=== PATIENT | female | born 1995 | race Caucasian/White ===

== ENCOUNTER → 2019-03-16 09:04 | Outpatient (CLI) | payer OTHER, SELFPAY ==
[2019-03-16 10:08] LABS: HCG,Quantitative 0 mIU/mL
[2019-03-16 11:47] LABS: Hemoglobin A1C 5.1 % (0.0-7.0)
== END ==
PROVIDERS: Visit Provider Obstetrics & Gynecology
DX: N92.6 Irregular menstruation, unspecified (principal)
CPT/HCPCS: 36415; 83036; 84702

== ENCOUNTER 2021-03-04 10:56 | Emergency (ER) | payer OTHER, SELFPAY ==
[2021-03-04 12:30] VITALS: BP 129/69; PULSE 111; RESP 18; TEMP 37.3; O2SAT 98; BMI 34.2
--- NOTE | 2021-03-04 13:08 | HMH.EDUTC ---
[facility] [place] Clinical Impression: URI (upper respiratory infection) Qualifiers: URI type: unspecified URI Qualified Code(s): J06.9 - Acute upper respiratory infection, unspecified Disposition: Home, Self-Care Condition on Discharge: Good Instructions: DI for Cough -- Adult, DI for COVID-19 (Suspected or Confirmed ), Preventing the Spread of Coronavirus Discharge Instructions Additional Instructions: * No sign of bacterial infection. Likely viral. Virus can take 7-14 days to run their course *Nasal saline and bulb syringe or nose michelle to remove nasal drainage and help with nasal congestion. Hard to eat, drink, or sleep with nasal congestion so important to keep nose cleaned out. *Monitor Temp, Over the counter Motrin or Tylenol as directed/as needed Tylenol every 4 hours and Motrin every 6 hours (as long as your family doctor has told you that you can take it) for fever or pain. and straight to ER if unable to lower temp less than 101.0 after medication given *Warm salt water gargles may help to soothe the throat *Throat Lozenges *Warm fluids like tea with honey may help to soothe the throat *Sleep elevated *Humidifier/Vaporizer Follow up IMMEDIATELY for new or worsening symptoms or no Noticeable improvement over the next 48-72 hours. 911 for difficulty breathing or swallowing You were tested for today for COVID19 your test result should be back in the next 24-48 hours, you may check your results on the [facility] My Health Portal if you have trouble logging on you may call You was given a handout with instructions for Self Quarantine and Self isolation for while you wait on test results and what to do if they are positive If you are positive the Health Dept will be contacting you also Make sure to take your Vitamins Vit. C Vit D and Zinc if you can take them Prescriptions: Cefdinir [Omnicef 300mg Capsule] 300 mg PO BID #20 cap Transmission Status: Pending to [id number] Referrals: Provider,Referral, MD [Primary Care Provider] - As needed Forms: Work/School Release Time of Disposition: 13:18 Medical Decision Making - Rell Inquiry Pt receiving controlled substance: No Rell was queried for this patient: No Vital Signs: 03/04/21 12:30 03/04/21 13:16 Temperature 99.1 F 99.1 F Temperature Source Oral Pulse Rate 111 H Pulse Rate [Right Brachial] 111 H Respiratory Rate 18 18 Blood Pressure 129/69 Blood Pressure [Right Arm] 129/69 Blood Pressure Mean [Right Arm] 89 Blood Pressure Source [Right Arm] Automatic Cuff Blood Pressure Position [Right Arm] Sitting 02 Sat by Pulse Oximetry 98 Oxygen Delivery Method Room Air Orders (Tests/Meds): ORDERS Category Date Time Status Covid-19 Nasal PCR ([facility]) Routine Lab 03/04/21 12:46 Ordered [facility] [place] - General Stated complaint: covid exposure/symptoms Time Seen by Provider: 03/04/21 13:08 Mode of Arrival: Ambulatory Source of Information: Patient Limitations: No Limitations Description of Symptoms (Recalled from Triage Doc. by RN): PATIENT C/O VOMITING AND DIARRHEA THAT STARTED LAST NIGHT. RECENTLY EXPOSED TO COVID HEENT Symptoms (Recalled from RN notes): No Resp Symptoms (Recalled from RN notes): No Skin Symptoms (Recalled from RN notes): No MS Symptoms (Recalled from RN notes): No Functional Status (Recalled from RN notes): WNL - History of Present Illness Provider Complaint: Patient states that she has been having cough and chest congestion, States that she has been having nausea and vomiting States that this morning she was coughing up some mucous States that her recently tested positive for COVID and she was concerned with that - Related Data Previous Rx's Medication Instructions Recorded Cefdinir [Omnicef 300mg Capsule] 300 mg PO BID #20 cap 03/04/21 Allergies Allergy/AdvReac Type Severity Reaction Status Date / Time No Known Allergies Allergy Verified 03/04/21 13:08 - Worker's Comp Is this a Worker'
[2021-03-04 13:16] VITALS: BP 129/69; PULSE 111; RESP 18; TEMP 37.3; O2SAT 98
== END 2021-03-04 13:27 | disposition home or self-care (01) ==
PROVIDERS: Emergency Provider Nurse Practitioner
DX: U07.1 COVID-19 (principal); J06.9 Acute upper respiratory infection, unspecified
CPT/HCPCS: 99202; C9803; G0463; U0003; U0005

== ENCOUNTER 2022-07-24 12:05 | Emergency (ER) | payer OTHER, SELFPAY ==
[2022-07-24 12:22] VITALS: BP 133/87; PULSE 81; RESP 16; TEMP 36.8; O2SAT 99; BMI 23.4
--- NOTE | 2022-07-24 12:31 | EXP.UTC ---
Discharge Plan Disposition Patient Disposition: Home, Self-Care Condition: Good Prescriptions Prescriptions: New triamcinolone acetonide 0.5 % ointment 1 applic topical TID Qty: 15 0RF No Action famotidine 20 mg tablet 20 mg PO DAILY + Iron 1 mg Tablet 1 tab PO DAILY fluticasone propionate 50 mcg/actuation spray,suspension 1 spray INTRANASAL DAILY loratadine [Claritin] 10 mg Tablet 10 mg PO DAILY Referrals Follow up/Referrals: Jeane Conn APRN [Primary Care Provider] - See instructions Activity Restrictions/Add. Instructions Additional Instructions/Restrictions: If condition worsens or does not improve, follow up with PCP. Clinical Impressions Clinical Impression: Dermatitis Instructions Patient Instructions: DI for Contact Dermatitis Discharge ED Provider: Radha Gunter [facility] General Stated complaint: Rash on right upper arm Mode of Arrival: Ambulatory Source of Information: Patient Limitations: No Limitations Time Seen by Provider: 07/24/22 12:20 Description of Symptoms (Recalled from Triage Doc. by RN): pt reports rash on right arm that has gotten progressively worse in the last week HEENT Symptoms (Recalled from RN notes): No Resp Symptoms (Recalled from RN notes): No Skin Symptoms (Recalled from RN notes): Yes (rash) MS Symptoms (Recalled from RN notes): No Functional Status (Recalled from RN notes): wnl History of Present Illness Provider Complaint: Pt reports that for the last week she has had a small rash on her arm that has progressively gotten a little bigger. She reports using antifungal creams, but states that she feels as if she has had a spider bite as you can see in the center a small hole area. She states that the site itches. Related Data Home Medications Medication Instructions Recorded Confirmed famotidine 20 mg tablet 20 mg PO DAILY gerd 07/24/22 07/24/22 fluticasone propionate 50 1 spray intranasal DAILY allergies 07/24/22 07/24/22 mcg/actuation nasal spray,suspension loratadine 10 mg tablet (Claritin) 10 mg PO DAILY allergies 07/24/22 07/24/22 [id number] 1 mg 1 tab PO DAILY Supplement 07/24/22 07/24/22 tablet Previous Rx's Medication Instructions Recorded triamcinolone acetonide 0.5 % 1 applic topical TID #15 grams 07/24/22 topical ointment Allergies Allergy/AdvReac Type Severity Reaction Status Date / Time Sulfa (Sulfonamide Allergy Verified 07/24/22 12:25 Antibiotics) Worker's Comp Is this a Worker's Comp case?: No Is this an H Worker's Comp?: No Is this a Lydia Worker's Comp?: No [facility] Disclaimer: The information contained in this section may have been updated after the patient was seen, as this information can be updated by other users. Social History Smoking Status: Never smoker alcohol intake: never current occupational status: employed Travel in the last 8 weeks: None ROS Obtained: Yes All systems reviewed & no additional complaints except as documented Constitutional Constitutional: Reports system reviewed and no additional complaints, except as documented Eyes Eyes: Reports system reviewed and no additional complaints, except as documented ENT Ears, Nose, Mouth, and Throat: Reports system reviewed and no additional complaints, except as documented Cardiovascular Cardiovascular: Reports system reviewed and no additional complaints, except as documented Respiratory Respiratory: Reports system reviewed and no additional complaints, except as documented Gastrointestinal Gastrointestingal: Reports system reviewed and no additional complaints, except as documented Genitourinary Female Genitourinary: Reports system reviewed and no additional complaints, except as documented Musculoskeletal Musculoskeletal: Reports system reviewed and no additional complaints, except as documented Integumentary/Breasts Skin/Breast: Reports as per HPI, Reports rajesh
[2022-07-24 12:37] VITALS: BP 132/82; PULSE 80; RESP 16; TEMP 36.7; O2SAT 100
== END 2022-07-24 12:37 | disposition home or self-care (01) ==
PROVIDERS: Emergency Provider Nurse Practitioner Family; PCP Nurse Practitioner Family
DX: L30.9 Dermatitis, unspecified (principal)
CPT/HCPCS: 99212; 99214; G0463